=== PATIENT | male | born 1950 | race Caucasian/White ===

== ENCOUNTER → 2016-09-24 | Outpatient (CLI) | payer MEDICARE, OTHER | LOC: KOH-I 08:25 | DX: R10.812 Left upper quadrant abdominal tenderness (principal) | CPT/HCPCS: 76700 ==

== ENCOUNTER → 2016-10-08 | Outpatient (CLI) | payer MEDICARE, OTHER | LOC: KOH-I 08:30 | DX: R10.12 Left upper quadrant pain (principal); N20.0 Calculus of kidney; M47.816 Spondylosis without myelopathy or radiculopathy, lumbar region; M47.812 Spondylosis without myelopathy or radiculopathy, cervical region | CPT/HCPCS: 72040; 72110; 73030; 74170; Q9962 ==

== ENCOUNTER → 2020-06-02 | Outpatient (CLI) | payer MEDICARE ==
[~2020-06-02] MED LIST: ALEVE220 M1 PO; ATORVASTATIN CA80 MG PO; ECOTRIN81 MG PO; FLOMAX0.4 MG PO; IMDUR ER TAB 3030 MG PO; KEFLEX CAP 500500 MG PO; LASIX40 MG PO; LOPRESSOR 25 MG25 MG PO; PLAVIX 75 MG TA75 MG PO; POTASSIUM CHLO10 MEQ PO; PROTONIX40 MG PO; SYNTHROID125 MCG PO; VITAMIN D250000 UNIT PO; ZANTAC150 MG PO; ZESTRIL40 MG PO
== END ==
LOC: CT 10:54
DX: R10.84 Generalized abdominal pain (principal); N20.0 Calculus of kidney; I71.4 Abdominal aortic aneurysm, without rupture
CPT/HCPCS: 74170; Q9967